=== PATIENT | female | born 1950 | race Asian ===

== ENCOUNTER 2017-11-03 20:04 | Emergency (ER) | payer OTHER ==
[2017-11-03 20:11] VITALS: BP 141/72
== END 2017-11-03 23:08 | disposition home or self-care (01) ==
LOC: ED 20:04
DX: S92.511A Displaced fracture of proximal phalanx of right lesser toe(s), initial encounter for closed fracture (principal); I10 Essential (primary) hypertension; W22.8XXA Striking against or struck by other objects, initial encounter; Y93.89 Activity, other specified; Y92.89 Other specified places as the place of occurrence of the external cause; Y99.8 Other external cause status